=== PATIENT | female | born 1945 | race Caucasian/White ===

== ENCOUNTER → 2016-11-27 | Outpatient (CLI) | payer MEDICARE, BC | LOC: MC.RAD 11:20 | DX: Z12.31 Encounter for screening mammogram for malignant neoplasm of breast (principal) | CPT/HCPCS: G0202 ==

== ENCOUNTER → 2017-12-02 | Outpatient (CLI) | payer MEDICARE, BC | LOC: MC.RAD 09:57 | DX: Z12.31 Encounter for screening mammogram for malignant neoplasm of breast (principal) ==

== ENCOUNTER 2018-03-04 20:06 | Inpatient (IN) | payer MEDICARE, BC ==
[~2018-03-04] VITALS: Ht 162.6 cm; Wt 80.0 kg
[2018-03-04] MEDS ORDERED: GLUCOPHAGE500 MG/TAB PO (20:34)
[2018-03-04] MEDS ORDERED: LIPITOR 10MG10 MG PO (20:34)
[2018-03-04] MEDS ORDERED: SYNTHROID 0.10.15 MG PO (20:35)
[2018-03-04] MEDS ORDERED: HYZAAR 25 MG-101 TAB PO (20:35)
[2018-03-04 20:54] LABS: BASO # 0.1 (0.0-0.2); BASO % 0.3 % (0.0-2.0); EOS # 0.1 (0.0-0.7); EOS % 0.3 % (0-4.0); GRAN # 12.6 (1.4-6.5); GRAN % 80.5 % (42.2-75.2); HEMATOCRIT 39.5 % (37.0-47.0); HEMOGLOBIN 14.3 g/dl (12.5-16.0); LYMPH # 2.1 (1.2-3.4); LYMPH % 13.6 % (20.0-51.0); MEAN CELL VOLUME 85 fl (80.0-100.0); MEAN CORPUSCULAR HEMOGLOBIN 31 pg (27.0-31.0); MEAN CORPUSCULAR HGB CONC 36 g/dl (33.0-37.0); MEAN PLATELET VOLUME 10.5 fl (7.4-10.4); MONO # 0.7 (0.1-0.6); MONO % 4.7 % (1.7-9.3); PLATELET COUNT 327 K/mm3 (130-400); RED BLOOD COUNT 4.67 M/mm3 (4.10-5.30); REDCELL DISTRIBUTION WIDTH-CV 14.3 % (11.5-14.5)
[2018-03-04 21:11] LABS: ALBUMIN 4.7 gm/dL (3.5-5.0); BILIRUBIN,TOTAL 2.6 mg/dL (0.0-1.0); C-REACTIVE PROTEIN 0.6 mg/dL (0.0-0.9); CALCIUM 9.6 mg/dL (8.4-10.2); CREATININE, serum 1.78 mg/dL (0.52-1.25); POTASSIUM 4.4 mmol/L (3.4-5.0); TOTAL PROTEIN 8.3 gm/dL (6.4-8.2)
[2018-03-04 21:47] LABS: COLLECTION METHOD CLEAN CATCH
[2018-03-04 21:57] LABS: MUCOUS Present /lpf; PH 5 (5-8); URINE APPEARANCE Cloudy; URINE BACTERIA Rare /hpf; URINE BILIRUBIN Negative (NEGATIVE); URINE BLOOD 2+ (NEGATIVE); URINE COLOR Yellow; URINE GLUCOSE Negative (NEGATIVE); URINE KETONE Trace (NEGATIVE); URINE LEUKOCYTE ESTERASE 3+ (NEGATIVE); URINE NITRATE Negative (NEGATIVE); URINE PROTEIN(semi-quant) 1+ (NEGATIVE); URINE RBC 20-50 /hpf; URINE UROBILINOGEN Negative (NEGATIVE)
[2018-03-05] VITALS (7 sets, daily range): BP systolic 104–173; BP diastolic 55–80; PULSE 59–75; TEMP 97.7–98.6
[2018-03-05] MEDS ORDERED: NEXIUM 40MG40 MG PO (01:14)
[2018-03-05] MEDS ORDERED: ALLEGRA ODT30 MG PO (01:17)
[2018-03-05] MEDS ORDERED: ASPIRIN 81M81 MG/TA2 PO (01:47)
[2018-03-05 03:21] LABS: COLLECTION METHOD CLEAN CATCH
[2018-03-05 04:01] LABS: AMORPHOUS CRYSTAL Present /uL; PH 5 (5-8); SQUAMOUS EPITHELIAL None Seen /hpf; URINE APPEARANCE Cloudy; URINE BACTERIA None Seen /hpf; URINE BILIRUBIN Negative (NEGATIVE); URINE BLOOD 1+ (NEGATIVE); URINE COLOR Yellow; URINE GLUCOSE Negative (NEGATIVE); URINE KETONE Negative (NEGATIVE); URINE LEUKOCYTE ESTERASE 3+ (NEGATIVE); URINE NITRATE Negative (NEGATIVE); URINE PROTEIN(semi-quant) Negative (NEGATIVE); URINE RBC None Seen /hpf; URINE UROBILINOGEN Negative (NEGATIVE); URINE WBC None Seen /hpf
[2018-03-05 04:03] LABS: URINE CALCIUM OXALATE CRYSTAL Present /hpf
[2018-03-05 07:31] LABS: BASO # 0.1 (0.0-0.2); BASO % 0.6 % (0.0-2.0); EOS # 0.1 (0.0-0.7); EOS % 0.8 % (0-4.0); GRAN # 6.6 (1.4-6.5); GRAN % 62.1 % (42.2-75.2); LYMPH % 28.3 % (20.0-51.0); MEAN CELL VOLUME 84 fl (80.0-100.0); MEAN CORPUSCULAR HGB CONC 37 g/dl (33.0-37.0); MEAN PLATELET VOLUME 10.6 fl (7.4-10.4); MONO # 0.8 (0.1-0.6); MONO % 7.7 % (1.7-9.3); PLATELET COUNT 244 K/mm3 (130-400); RED BLOOD COUNT 3.83 M/mm3 (4.10-5.30); REDCELL DISTRIBUTION WIDTH-CV 14.2 % (11.5-14.5)
[2018-03-05 07:33] LABS: HEMATOCRIT 32.3 % (37.0-47.0); HEMOGLOBIN 11.9 g/dl (12.5-16.0); MEAN CORPUSCULAR HEMOGLOBIN 31 pg (27.0-31.0)
[2018-03-05 07:51] LABS: CREATININE, serum 1.44 mg/dL (0.52-1.25); POTASSIUM 3.9 mmol/L (3.4-5.0)
[2018-03-06 04:17] VITALS: BP 110/67; PULSE 58; TEMP 98.5
[2018-03-06 07:22] VITALS: BP 130/57; PULSE 61; TEMP 98
[2018-03-06 07:50] LABS: CALCIUM 8.5 mg/dL (8.4-10.2); CREATININE, serum 1.19 mg/dL (0.52-1.25); POTASSIUM 4.2 mmol/L (3.4-5.0)
[2018-03-06 08:07] LABS: BASO # 0.1 (0.0-0.2); BASO % 0.9 % (0.0-2.0); EOS # 0.2 (0.0-0.7); EOS % 2.5 % (0-4.0); GRAN # 5.3 (1.4-6.5); GRAN % 56.8 % (42.2-75.2); HEMOGLOBIN 12.2 g/dl (12.5-16.0); LYMPH # 2.9 (1.2-3.4); MEAN CELL VOLUME 84 fl (80.0-100.0); MEAN CORPUSCULAR HEMOGLOBIN 31 pg (27.0-31.0); MEAN CORPUSCULAR HGB CONC 37 g/dl (33.0-37.0); MEAN PLATELET VOLUME 10.3 fl (7.4-10.4); MONO # 0.8 (0.1-0.6); MONO % 8.3 % (1.7-9.3); PLATELET COUNT 239 K/mm3 (130-400); RED BLOOD COUNT 3.97 M/mm3 (4.10-5.30); REDCELL DISTRIBUTION WIDTH-CV 14.2 % (11.5-14.5)
[2018-03-06 08:13] LABS: HEMATOCRIT 33.2 % (37.0-47.0)
[2018-03-06] MEDS ORDERED: FLAGYL500 MG PO (08:15)
[2018-03-06] MEDS ORDERED: CIPRO 500MG TA500 MG PO (08:15)
== END 2018-03-06 11:15 | disposition home or self-care (01) | DRG 392 ==
LOC: COL.ER 20:06 → MEDICAL 23:01
PROVIDERS: Emergency Medicine; Nurse Practitioner; Nurse Practitioner Family
DX: K57.32 Diverticulitis of large intestine without perforation or abscess without bleeding (principal); N17.9 Acute kidney failure, unspecified; I10 Essential (primary) hypertension; E11.9 Type 2 diabetes mellitus without complications; E86.0 Dehydration; Z85.3 Personal history of malignant neoplasm of breast; Z87.891 Personal history of nicotine dependence; E78.5 Hyperlipidemia, unspecified
CPT/HCPCS: 99223-AI; 99239; C9113; J0696; J0744; J1200; J1815; J2270; J2405; J3010; J7030

== ENCOUNTER 2018-03-12 13:10 | Outpatient (CLI) | payer MEDICARE, BC ==
[~2018-03-12] VITALS: Ht 162.6 cm; Wt 79.0 kg
[~2018-03-12 13:10] MED LIST: ALLEGRA ODT30 MG PO; ASPIRIN 81M81 MG/TA2 PO; CIPRO 500MG TA500 MG PO; FLAGYL500 MG PO; GLUCOPHAGE500 MG/TAB PO; HYZAAR 25 MG-101 TAB PO; LIPITOR 10MG10 MG PO; NEXIUM 40MG40 MG PO; SYNTHROID 0.10.15 MG PO
[2018-03-12 13:35] VITALS: BP 110/72; PULSE 78; TEMP 98.2
[2018-03-12 15:49] VITALS: BP 125/79; PULSE 74
[2018-03-12 16:04] LABS: CALCIUM 9.2 mg/dL (8.4-10.2); CREATININE, serum 1.71 mg/dL (0.52-1.25); POTASSIUM 4.1 mmol/L (3.4-5.0)
== END 2018-03-12 16:22 | disposition home or self-care (01) ==
LOC: EUO 13:10
PROVIDERS: Family Medicine
DX: E86.0 Dehydration (principal); N17.9 Acute kidney failure, unspecified
CPT/HCPCS: J7030

== ENCOUNTER → 2018-12-22 | Outpatient (CLI) | payer MEDICARE, BC | LOC: MC.RAD 10:41 | DX: Z12.31 Encounter for screening mammogram for malignant neoplasm of breast (principal); Z90.12 Acquired absence of left breast and nipple ==

== ENCOUNTER → 2020-08-02 | Outpatient (CLI) | payer MEDICARE, BC | LOC: MC.RAD 12:59 | DX: Z12.31 Encounter for screening mammogram for malignant neoplasm of breast (principal) ==

== ENCOUNTER 2021-05-07 16:34 | Inpatient (IN) | payer MEDICARE, BC ==
[~2021-05-07] VITALS: Ht 165.1 cm; Wt 82.7 kg
[2021-05-07 17:26] LABS: BASO # 0.1 K/mm3 (0.0-0.2); BASO % 0.5 % (0.0-2.0); EOS % 0.1 % (0-4.0); GRAN % 77.7 % (42.2-75.2); HEMOGLOBIN 14.8 g/dl (12.5-16.0); LYMPH # 2.4 K/mm3 (1.2-3.4); LYMPH % 15.4 % (20.0-51.0); MEAN CELL VOLUME 85 fl (80.0-100.0); MEAN CORPUSCULAR HEMOGLOBIN 30 pg (27.0-31.0); MEAN CORPUSCULAR HGB CONC 35 g/dl (33.0-37.0); MEAN PLATELET VOLUME 9.9 fl (7.4-10.4); MONO # 0.9 K/mm3 (0.1-0.6); MONO % 5.5 % (1.7-9.3); PLATELET COUNT 273 K/mm3 (130-400); RED BLOOD COUNT 4.95 M/mm3 (4.10-5.30); REDCELL DISTRIBUTION WIDTH-CV 15.1 % (11.5-14.5)
[2021-05-07 17:52] LABS: ALBUMIN 3.7 gm/dL (3.4-4.8); BILIRUBIN,TOTAL 1.8 mg/dL (0.2-1.2); CALCIUM 9.3 mg/dL (8.4-10.2); CREATININE, serum 1.51 mg/dL (0.57-1.11); POTASSIUM 4.5 mmol/L (3.5-4.5); TOTAL PROTEIN 7.5 gm/dL (6.2-8.1)
[2021-05-07] MEDS ORDERED: NEXIUM 40MG40 MG PO (17:56)
[2021-05-07] MEDS ORDERED: DIFLUCAN150 MG PO (17:57)
[2021-05-07] MEDS ORDERED: NORVASC 5MG5 MG/TAB PO (17:57)
[2021-05-07] MEDS ORDERED: FOSAMAX 70MG TA70 MG PO (17:57)
[2021-05-07] MEDS ORDERED: DIABETA 5MG5 MG/TAB PO (17:58)
[2021-05-07] MEDS ORDERED: LIPITOR 10MG10 MG PO (17:58)
[2021-05-07] MEDS ORDERED: DESYREL 50MG50 MG PO (17:58)
[2021-05-07] MEDS ORDERED: NATURE'S BLE1000 MCG (17:59)
[2021-05-07] MEDS ORDERED: ALLEGRA 60MG TA60 MG PO (17:59)
[2021-05-07 18:00] LABS: TROPONIN-I 0.031 ng/mL (0.00-0.033)
[2021-05-07] MEDS ORDERED: COZAAR100 MG PO (18:00)
[2021-05-07] MEDS ORDERED: EUTHYROX125 MCG PO (18:00)
[2021-05-07] MEDS ORDERED: JARDIANCE25 PO (18:01)
[2021-05-07 19:28] LABS: PARTIAL THROMBOPLASTIN TIME 27.2 SECONDS (26.0-37.0)
[2021-05-07 20:11] VITALS: BP 147/71; PULSE 90; TEMP 98
[2021-05-07] MEDS ORDERED: SYNTHROID 0.10.15 MG PO (20:26)
[2021-05-07] MEDS ORDERED: EUTHYROX137 MCG PO (20:29)
--- NOTE | 2021-05-07 21:09 | NUR ---
Patient arrived to medical unit from ER at approximately 1950. Alert and oriented x 4, and able to make needs known. Denies pain and discomfort. Peripheral IV to right AC, with Heparin drip runnig per orders. To recheck HepXa 6 hours after starting. Reports SOB and dyspnea with exertion. On oxygen at 1 L/min via NC. LS CTA. Respirations even and unlabored. HRR. Telemetry in place. Capillary refill less than 3 seconds. Non-tenting skin turgor. BSAx4. Abdomen soft and non-tender. Voices no questions, needs, or concerns at this time. Resting in bed with call light within reach.
--- NOTE | 2021-05-07 23:24 | NUR ---
Patient given Rocephin per orders around 2214. Shortly afterwards, patient had emesis. Afterwards she stated she felt ok. Updated NAVID Craven. Patient denies pain and discomfort at this time. Denies feeling nauseous. Voices no questions, needs, or concerns. Resting in bed with call light within reach. High fall risk precautions in place.
[2021-05-08] VITALS (180 sets, daily range): BP systolic 114–152; BP diastolic 67–90; PULSE 78–95; TEMP 97.9–98.1; O2SAT 85–97
[2021-05-08 00:59] LABS: COLLECTION METHOD CLEAN CATCH
[2021-05-08 01:09] LABS: BUDDING YEAST Present /hpf; MUCOUS Present /lpf; PH 5 (5-8); SQUAMOUS EPITHELIAL 0-2 /hpf; URINE APPEARANCE Cloudy; URINE BACTERIA Rare /hpf; URINE BILIRUBIN Negative (NEGATIVE); URINE BLOOD 1+ (NEGATIVE); URINE COLOR Yellow; URINE GLUCOSE 3+ (NEGATIVE); URINE KETONE Negative (NEGATIVE); URINE LEUKOCYTE ESTERASE 3+ (NEGATIVE); URINE NITRATE Negative (NEGATIVE); URINE PROTEIN(semi-quant) Negative (NEGATIVE); URINE RBC >50 /hpf; URINE UROBILINOGEN Negative (NEGATIVE)
[2021-05-08 03:05] LABS: BASO # 0.1 K/mm3 (0.0-0.2); BASO % 0.6 % (0.0-2.0); EOS # 0.1 K/mm3 (0.0-0.7); EOS % 0.4 % (0-4.0); GRAN # 11.7 K/mm3 (1.4-6.5); HEMATOCRIT 39.9 % (37.0-47.0); HEMOGLOBIN 14.2 g/dl (12.5-16.0); LYMPH # 4.1 K/mm3 (1.2-3.4); MEAN CELL VOLUME 83 fl (80.0-100.0); MEAN CORPUSCULAR HEMOGLOBIN 30 pg (27.0-31.0); MEAN CORPUSCULAR HGB CONC 36 g/dl (33.0-37.0); MEAN PLATELET VOLUME 9.9 fl (7.4-10.4); MONO % 5.9 % (1.7-9.3); PLATELET COUNT 263 K/mm3 (130-400); RED BLOOD COUNT 4.82 M/mm3 (4.10-5.30); REDCELL DISTRIBUTION WIDTH-CV 14.7 % (11.5-14.5)
--- NOTE | 2021-05-08 03:27 | NUR ---
HepXa goal. Recheck in 6 hours.
[2021-05-08 03:48] LABS: CALCIUM 8.7 mg/dL (8.4-10.2); CREATININE, serum 1.28 mg/dL (0.57-1.11); POTASSIUM 3.9 mmol/L (3.5-4.5)
--- NOTE | 2021-05-08 06:04 | NUR ---
Continues on Heparin drip per orders. Denies pain and discomfort. Cotinues on oxygen at 1 L/min via NC. In bed with call light within reach.
--- NOTE | 2021-05-08 09:14 | NUR ---
SW met with the patient to discuss discharge plan. The patient lives in [place] with her , Benjamin (ph#[phone]). She reports independence with ADLs and does not have any DME. The patient's PCP is Dr. Alexa Dumont and she receives her medications from [facility]. She reports no difficulties obtaining her meds. The patient does not have a DPOA-HC in EMR. She states that she might have one, but that her takes care of those things. She was not interested in completing a DPOA-HC while here. The patient plans to return home with her upon discharge. She is currently on 1 liter of oxygen. SW to continue to monitor. *Discharge plan: home with *
--- NOTE | 2021-05-08 11:03 | NUR ---
PT RESTING IN BED. MORNING MEDICATIONS GIVEN. SHIFT ASSESSMENT COMPLETED. PT CONCERNED AFTER HEARING ABOUT HER DVT. DENIES ANY PAIN IN L LOWER EXTREMITY, DOES APPEAR SWOLLEN AND WARM. DENIES ANY NEEDS AT THIS TIME. HEPARIN GTT INFUSING. WILL CONTINUE TO MONITOR.
--- NOTE | 2021-05-08 17:45 | NUR ---
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 PT TRANSFERED TO ICU BED, CONNECTED TO MONITOR. HEPARIN INFUSING CURRENTLY. PT DENIES ANY PAIN OR SOA. WILL CONTINUE TO MONITOR.
--- NOTE | 2021-05-08 18:21 | NUR ---
PT REFUSED MRSA SWAB UPON TRANSFER TO ICU. STATES 'S OFFICE JUST TOOK SWAB ALONG WITH COVID SWAB YESTERDAY.
--- NOTE | 2021-05-08 20:27 | NUR ---
PATIENT TALKIN WITH FAMILY ON PHONE, DENIES PAIN OR DISCOMFORT, APPRHENSIVE ABOUT TOMORROWS EVENTS. OTHER HAND COMFORTABLE
[2021-05-09] VITALS (214 sets, daily range): BP systolic 132–141; BP diastolic 90; PULSE 75–82; TEMP 98.1–99.4; O2SAT 82–98
[2021-05-09 04:54] LABS: HEMATOCRIT 42.9 % (37.0-47.0); HEMOGLOBIN 15.2 g/dl (12.5-16.0); MEAN CELL VOLUME 83 fl (80.0-100.0); MEAN CORPUSCULAR HEMOGLOBIN 30 pg (27.0-31.0); MEAN CORPUSCULAR HGB CONC 35 g/dl (33.0-37.0); MEAN PLATELET VOLUME 10.2 fl (7.4-10.4); PLATELET COUNT 295 K/mm3 (130-400); RED BLOOD COUNT 5.15 M/mm3 (4.10-5.30); REDCELL DISTRIBUTION WIDTH-CV 15.3 % (11.5-14.5)
[2021-05-09 05:12] LABS: CALCIUM 9.1 mg/dL (8.4-10.2); CREATININE, serum 1.33 mg/dL (0.57-1.11); POTASSIUM 3.7 mmol/L (3.5-4.5)
== END 2021-05-09 07:45 | disposition short-term general hospital (02) | DRG 175 ==
LOC: COL.ER 16:34 → MEDICAL 18:23 → ICU 05-08 17:48
PROVIDERS: Emergency Medicine; Physician Assistant; Student in an Organized Health Care Education/Training Program; ADMIT Internal Medicine
DX: I26.92 Saddle embolus of pulmonary artery without acute cor pulmonale (principal); J96.01 Acute respiratory failure with hypoxia; N39.0 Urinary tract infection, site not specified; I82.4Z2 Acute embolism and thrombosis of unspecified deep veins of left distal lower extremity; E78.5 Hyperlipidemia, unspecified; E03.9 Hypothyroidism, unspecified; E11.65 Type 2 diabetes mellitus with hyperglycemia; E11.22 Type 2 diabetes mellitus with diabetic chronic kidney disease; N18.9 Chronic kidney disease, unspecified; I12.9 Hypertensive chronic kidney disease with stage 1 through stage 4 chronic kidney disease, or unspecified chronic kidney disease; K21.9 Gastro-esophageal reflux disease without esophagitis
CPT/HCPCS: 99223-AI; 99233-AI; 99239; J0696; J1644; J1815; J1940; Q9967

== ENCOUNTER → 2021-12-25 | Outpatient (CLI) | payer MEDICARE, BC ==
[~2021-12-25] MED LIST changes: +ALLEGRA 60MG TA60 MG PO; +COZAAR100 MG PO; +DESYREL 50MG50 MG PO; +DIABETA 5MG5 MG/TAB PO; +DIFLUCAN150 MG PO; +EUTHYROX125 MCG PO; +EUTHYROX137 MCG PO; +FOSAMAX 70MG TA70 MG PO; +JARDIANCE25 PO; +NATURE'S BLE1000 MCG; +NORVASC 5MG5 MG/TAB PO
== END ==
LOC: MC.RAD 10:07
DX: Z12.31 Encounter for screening mammogram for malignant neoplasm of breast (principal)

== ENCOUNTER 2022-01-03 10:08 | Day surgery (SDC) | payer MEDICARE, BC ==
[~2022-01-03] VITALS: Ht 165.2 cm; Wt 83.1 kg
[2022-01-03] MEDS ORDERED: TOPROL XL 50MG50 MG PO (10:50)
[2022-01-03] MEDS ORDERED: CELEXA 20MG20 MG/TAB PO (10:51)
[2022-01-03] MEDS ORDERED: ELIQUIS 5MG PO (10:51)
[2022-01-03] MEDS ORDERED: GLUCOTROL 5M5 MG/TAB PO (10:53)
[2022-01-03] MEDS ORDERED: SYNTHROID0.137 MG PO (10:54)
[2022-01-03] MEDS ORDERED: COZAAR100 MG PO (10:55)
[2022-01-03] MEDS ORDERED: TOPROL XL 25MG25 MG PO (11:26)
[2022-01-03] MEDS ORDERED: NORVASC 5MG5 MG/TAB PO (11:26)
[2022-01-03] MEDS ORDERED: TAMBOCOR50 MG PO (11:26)
[2022-01-03 11:44] VITALS: BP 172/85; PULSE 69; TEMP 98.6
--- NOTE | 2022-01-03 11:50 | NUR ---
Procedure cancelled.Discharge instructions given to pt.Pt verbalizes understanding.Pt escorted out via wheelchair.
== END 2022-01-03 11:53 ==
LOC: COL.CAR 10:08
DX: I48.91 Unspecified atrial fibrillation (principal); Z53.8 Procedure and treatment not carried out for other reasons; I10 Essential (primary) hypertension; E11.9 Type 2 diabetes mellitus without complications; E78.2 Mixed hyperlipidemia; K21.9 Gastro-esophageal reflux disease without esophagitis; Z86.718 Personal history of other venous thrombosis and embolism; Z79.01 Long term (current) use of anticoagulants; Z86.711 Personal history of pulmonary embolism; Z87.891 Personal history of nicotine dependence; Z79.84 Long term (current) use of oral hypoglycemic drugs